=== PATIENT | male | born 1980 | race Caucasian/White ===

== ENCOUNTER 2019-03-21 09:30 | Emergency (ER) | payer BC ==
[2019-03-21 10:02] VITALS: BP 139/87
--- NOTE | 2019-03-21 11:56 | UC ---
Ear Complaint HPI - HPI Summary HPI Summary: Patient is a 38-year-old male,medical history, here with right ear pain. Patient of right ear pain last night. Patient feels a fullness in his ear with associated feeling of a lump in his throat. Patient has no fever, chills, nasal congestion, cough, sore throat, vomiting, diarrhea. Patient's had similar episodes off-and-on for the past 3 weeks and relates it to allergies. Patient is not taking any allergy medication. medications reviewed - History of Current Complaint Chief Complaint: UCGeneralIllness Stated Complaint: RT EAR PAIN Time Seen by Provider: 03/21/19 10:04 Hx Obtained From: Patient Onset/Duration: Sudden Onset Severity Initially: Mild Severity Currently: Mild Pain Intensity: 1 - Allergies/Home Medications Allergies/Adverse Reactions: Allergies Allergy/AdvReac Type Severity Reaction Status Date / Time No Known Allergies Allergy Verified 03/21/19 09:56 Home Medications: Home Medications Acetaminophen TAB* [Tylenol TAB*] 650 mg PO ONCE 03/21/19 [History Confirmed ] PMH/Surg Hx/FS Hx/Imm Hx Previously Healthy: Yes - Surgical History Surgical History: Yes Surgery Procedure, Year, and Place: wart removal from foot - Family History Known Family History: Positive: Unknown - Social History Alcohol Use: Daily Alcohol Amount: a couple beers/ day Substance Use Type: None Smoking Status (MU): Never Smoked Tobacco Review of Systems All Other Systems Reviewed And Are Negative: Yes Physical Exam - Summary Physical Exam Summary: Vital Signs Reviewed: Yes A+Ox3, no distress Eyes: Conjunctiva Clear ENT: Right TM with small amount of serous fluid with no overlying erythema or bulging. No tonsillar erythema or exudate. No cervical lymphadenopathy neck: supple Respiratory: Positive: No respiratory distress, No accessory muscle use Cardiovascular: skin color reflect adequate perfusion Musculoskeletal Exam: PHILLIPS x 4 without difficulty Neurological: Positive: Alert, ambulatory without difficulty Triage Information Reviewed: Yes Vital Signs: Initial Vital Signs Temp 98.4 F 03/21/19 09:58 Pulse 64 03/21/19 09:58 Resp 16 03/21/19 09:58 BP 139/87 03/21/19 09:58 Pulse Ox 98 03/21/19 09:58 Ear Complaint Course/Dx - Course Course Of Treatment: Patient is here with right ear pain and fullness that started yesterday. Patient had similar symptoms off off for the past couple weeks. Patient's exam is not consistent with an infectious etiology. Patient was instructed he needs to take daily Zyrtec for allergies given the likelihood that this is related to allergies. Patient was also given a [id number] prescription for antibiotics in case his symptoms do not get better - Differential Dx/Diagnosis Differential Diagnosis/HQI/PQRI: Bronchitis, Foreign Body, Otitis Externa, Otitis Media, URI Provider Diagnosis: Ear pain, right, Allergic rhinitis Discharge - Sign-Out/Discharge Documenting (check all that apply): Patient Departure All imaging exams completed and their final reports reviewed: No Studies - Discharge Plan Condition: Stable Disposition: HOME Referrals: Sujatha Stephenson [Primary Care Provider] - Additional Instructions: Patient discharge instructions written and given to in person - Billing Disposition and Condition Condition: STABLE Disposition: Home
== END 2019-03-21 10:50 | disposition home or self-care (01) ==
LOC: UCEAST 09:30
DX: H92.01 Otalgia, right ear (principal); J30.9 Allergic rhinitis, unspecified
CPT/HCPCS: 99202; G0463

== ENCOUNTER 2019-05-09 10:36 | Emergency (ER) | payer BC ==
[2019-05-09] MEDS ORDERED: NS 0.9% 1000 ML** 1,000 ML IV ONE (11:00)
[2019-05-09] MEDS ORDERED: Ketorolac INJ* 30 MG/ML 1 ML VIAL IV ONE (11:00)
--- NOTE | 2019-05-09 11:03 | ED ---
GI/ HPI - HPI Summary HPI Summary: This patient is a 38 year old M presenting to ED with a chief complaint of sudden onset intermittent L flank pain since 05/07/19. The patient now radiates around to the L abdomen and the patient reports nausea. The patient rates the pain 4/10 in severity. Symptoms aggravated by nothing. Symptoms alleviated by nothing. Patient denies difficulty urinating, hematuria, diarrhea, and constipation. Patient does not a history of this type of pain or kidney stones. - History of Current Complaint Chief Complaint: EDFlankPain Time Seen by Provider: 05/09/19 10:41 Stated Complaint: LT SIDE FLANK PAIN PER PT Hx Obtained From: Patient Onset/Duration: Started Days Ago - 05/07/19, Still Present Timing: Intermittent Severity: Moderate Current Severity: Moderate Pain Intensity: 4 Location of Pain: Radiates to: - L abdomen, Flank - L Associated Signs and Symptoms: Positive: Negative - Difficulty urinating, Nausea , Flank Pain, Abdominal Pain. Negative: Vomiting, Constipation, Diarrhea, Hematuria Aggravating Factor(s): Nothing Alleviating Factor(s): Nothing - Allergy/Home Medications Allergies/Adverse Reactions: Allergies Allergy/AdvReac Type Severity Reaction Status Date / Time No Known Allergies Allergy Verified 05/09/19 10:42 PMH/Surg Hx/FS Hx/Imm Hx Endocrine/Hematology History: Denies: Hx Diabetes, Hx Thyroid Disease Cardiovascular History: Reports: Other Cardiovascular Problems/Disorders - Heart murmur Denies: Hx Hypertension Respiratory History: Denies: Hx Asthma, Hx Chronic Obstructive Pulmonary Disease (COPD) GI History: Denies: Hx Ulcer - Surgical History Surgery Procedure, Year, and Place: wart removal from foot Infectious Disease History: No Infectious Disease History: Denies: Hx Hepatitis, Hx Human Immunodeficiency Virus (HIV), Traveled Outside the [place] in Last 30 Days - Family History Known Family History: Negative: Cardiac Disease, Hypertension, Diabetes - Social History Alcohol Use: Daily Alcohol Amount: a couple beers/ day Hx Substance Use: No Substance Use Type: Reports: None Hx Tobacco Use: No Smoking Status (MU): Never Smoked Tobacco Review of Systems Gastrointestinal: Negative - Constipation Positive: Nausea. Negative: Vomiting, Diarrhea Genitourinary: Negative - Difficulty urinating Positive: flank pain. Negative: hematuria All Other Systems Reviewed And Are Negative: Yes Physical Exam - Summary Physical Exam Summary: VITAL SIGNS: Reviewed. GENERAL: Patient is a well-developed and nourished male who is lying comfortable in the stretcher. Patient is not in any acute respiratory distress. HEAD AND FACE: Normocephalic and atraumatic. EYES: PERRLA, EOMI x 2, No injected conjunctiva. EARS: Hearing grossly intact. Ear canals and tympanic membranes are WNL. MOUTH: Oropharynx within normal limits. NECK: Supple, trachea is midline, no adenopathy, no JVD. CHEST: Symmetric, no tenderness at palpation. LUNGS: Clear to auscultation bilaterally. No wheezing or crackles. CVS: RRR, S1 and S2 present, no murmurs or gallops appreciated. ABDOMEN: Left CVA tenderness EXTREMITIES: FROM in all major joints, no edema, no cyanosis or clubbing. NEURO: Alert and oriented x 3. No acute neurological deficits. Speech is normal. SKIN: Dry and warm. Triage Information Reviewed: Yes Vital Signs On Initial Exam: Initial Vitals Temp Pulse Resp BP Pulse Ox 97.6 F 59 16 148/100 100 05/09/19 10:39 05/09/19 10:39 05/09/19 10:39 05/09/19 10:39 05/09/19 10:39 Vital Signs Reviewed: Yes Diagnostics - Vital Signs Vital Signs Temp Pulse Resp BP Pulse Ox 05/09/19 10:39 97.6 F 59 16 148/100 100 - Laboratory Result Diagrams: 05/09/19 11:07 05/09/19 11:07 Lab Statement: Any lab studies that have been ordered have been reviewed, and results considered in the medical decision making process. - CT A/P CT Interpretation Completed By: Radiologist Summary of CT Findings: Normal appendix. No obstructive uropathy is noted. Likely hepatic cyst is noted in the medial left lobe of liver. Dr. Gomez has reviewed this radiology report. Re-Evaluation - Re-Evaluation First Eval Re-Evaluation Time: 13:12 Change: Improved Comment: With treatment, patient reports feeling better. Discussed results with patient. Patient will be discharged home with dx of back pain. Patient understands and agrees with this plan. GIGU Course/Dx - Course Assessment/Plan: Blood work without any significant abnormality.urinalysis is negative for UTI. Abdomen and pelvic CT impression: No acute pathology. In the ED course the patient was given Toradol and Norflex and the symptoms have significantly improved. I believe that the patients pain is secondary to lower back pain. Probably muscle strain. Since the patient is feeling better and the pain has resolved he will be discharged home with follow-up with PCP. Patient is hemodynamically stable alert and 3. - Diagnoses Provider Diagnoses: Back pain Discharge ED - Sign-Out/Discharge Documenting (check all that apply): Patient Departure - Discharge Patient Received Moderate/Deep Sedation with Procedure: No - Discharge Plan Condition: Stable Disposition: HOME Prescriptions: Methocarbamol TAB* [Robaxin 500 MG TAB*] 500 mg PO TID PRN #12 tab PRN Reason: Spasms - Back methylPREDNISolone [Medrol Dosepak 4 MG*] 0 mg PO .SEE BETO INSTRUCTION #1 beto Naproxen [Naproxen 500 mg tab] 500 mg PO BID #30 tablet Patient Education Materials: Back Pain (ED) Referrals: Sujatha Stephenson [Primary Care Provider] - 3 Days Additional Instructions: FOLLOW UP WITH YOUR PRIMARY CARE PROVIDER WITHIN ONE WEEK. RETURN TO THE ED FOR ANY WORSENING OR NEW SYMPTOMS. - Billing Disposition and Condition Condition: STABLE Disposition: Home - Attestation Statements Document Initiated by Jannetteibe: Yes Documenting Scribe: Jerrell Howard Provider For Whom Félix is Documenting (Include Credential): David Gomez MD Scribe Attestation: I, Jerrell Howard, scribed for David Gomez MD on 05/09/19 at 1835. Scribe Documentation Reviewed: Yes Provider Attestation: The documentation as recorded by the Jerrell estevez accurately reflects the service I personally performed and the decisions made by me, David Gomez MD Status of Scribe Document: Viewed
[2019-05-09 11:25] LABS: ABS Lymphocytes 2.4 10^3/ul (1.0-4.8); ABS Monocytes 0.4 10^3/ul (0-0.8); ABS Neutrophils 2.2 10^3/ul (1.5-7.7); Eosinophil % 0.4 %; Hematocrit 42 % (42-52); Hemoglobin 14.8 g/dL (14.0-18.0); Lymphocyte % 47.1 %; Mean Corpuscular HGB Conc 35 g/dL (31-36); Mean Corpuscular Hemoglobin 32 pg (27-31); Mean Corpuscular Volume 91 fL (80-94); Mean Platelet Volume 7.8 fL (7.4-10.4); Nucleated Red Blood Cells % 0.2; Platelet Count 242 10^3/uL (150-450); Red Blood Count 4.64 10^6 /uL (4.18-5.48); Red Cell Distribution Width 13 % (10-15); White Blood Count 5.1 10^3/uL (3.5-10.8)
[2019-05-09 11:52] LABS: Albumin 4.5 g/dL (3.2-5.2); Albumin/Globulin Ratio 1.9 (1-3); C Reactive Protein 3.07 mg/L (<8.01); Calcium 9.4 mg/dL (8.6-10.3); EGFR African American 101.7 (>60); EGFR Non-African American 84.1 (>60); Globulin 2.4 g/dL (2-4); Potassium 3.8 mmol/L (3.5-5.0); Total Bilirubin 0.4 mg/dL (0.2-1.0); Total Protein 6.9 g/dL (6.4-8.9)
[2019-05-09] MEDS ORDERED: Orphenadrine Citrate IV* 30 MG/ML 2 ML VIAL IV ONE (12:09)
[2019-05-09 13:08] LABS: Urine Appearance Clear; Urine Bilirubin Negative (Negative); Urine Blood Negative (Negative); Urine Color Yellow; Urine Glucose Negative (Negative); Urine Ketones Trace (Negative); Urine Nitrite Negative (Negative); Urine Protein Negative (Negative); Urine Specific Gravity 1.016 (1.010-1.030); Urine Urobilinogen Negative (Negative)
[2019-05-09 13:26] VITALS: BP 138/87
== END 2019-05-09 13:27 | disposition home or self-care (01) ==
LOC: ED 10:36
DX: M54.9 Dorsalgia, unspecified (principal)
CPT/HCPCS: 36415; 74176; 80053; 81003; 83690; 85025; 86140; 96361; 96374; 96375; 99282; J1885; J2360